=== PATIENT | male | born 1945 | race Caucasian/White ===

== ENCOUNTER → 2017-11-15 08:18 | Outpatient (CLI) | payer MEDICARE ==
[2012-05-26 19:49] VITALS: BMI 277.2
== END | disposition home or self-care (01) ==
LOC: D.US 08:18
DX: Z13.6 Encounter for screening for cardiovascular disorders (principal)

== ENCOUNTER 2019-08-19 13:18 | Emergency (ER) | payer OTHER ==
[~2019-08-19] VITALS: Ht 182.9 cm; Wt 97.7 kg
[2019-08-19 13:25] VITALS: Ht 182.9 cm; Wt 97.7 kg
[2019-08-19] MEDS ORDERED: KEFLEX500 MG PO ×2 (13:54→16:41)
[2019-08-19 14:16] VITALS: BP 123/63
== END 2019-08-19 14:17 | disposition home or self-care (01) ==
LOC: D.ER 13:18
DX: S91.311A Laceration without foreign body, right foot, initial encounter (principal); W26.0XXA Contact with knife, initial encounter; Y93.9 Activity, unspecified; Y92.9 Unspecified place or not applicable; E11.9 Type 2 diabetes mellitus without complications; I48.91 Unspecified atrial fibrillation

== ENCOUNTER 2019-08-19 15:54 | Emergency (ER) | payer OTHER ==
[~2019-08-19] VITALS: Ht 182.9 cm; Wt 70.5 kg
[~2019-08-19 15:54] MED LIST: KEFLEX500 MG PO
[2019-08-19 16:05] VITALS: Ht 182.9 cm; Wt 70.5 kg
[2019-08-19] MEDS ORDERED: KEFLEX500 MG PO (16:41)
[2019-08-19 16:53] VITALS: BP 126/72
== END 2019-08-19 16:54 | disposition home or self-care (01) ==
LOC: D.ER 15:54
DX: S91.311D Laceration without foreign body, right foot, subsequent encounter (principal); E11.9 Type 2 diabetes mellitus without complications; I48.91 Unspecified atrial fibrillation